=== PATIENT | female | born 1995 | race Caucasian/White ===

== ENCOUNTER 2021-05-19 23:21 | Emergency (ER) | payer OTHER, SELFPAY ==
--- OUTSIDE RECORDS SUMMARY | 2021-05-19 23:23 | XMS REPORT | Continuity of Care Document ---
:1995 Author Organization [facility] Address [address] [place] [address] Care Team Providers Name Role Phone Provider, [facility] Attending Clinician Unavailable Theodora Li Attending Clinician Theodora ASCENCIO Attending Clinician Unavailable Only, Test Attending Clinician Unavailable Melony BANKS Attending Clinician MELONY Attending Clinician Unavailable Doctor Unassigned, Name Attending Clinician Unavailable Payers Payer Name Policy Type Policy Number Effective Date Expiration Date S ource Problems Condition Condition Condition Status Onset Resolution Last Treating Co mments Source Name Details Category Date Date Treatment Clinician Date No known No known Disease Unive rs active active ity of problems problems [facility] Allergies, Adverse Reactions, Alerts Allergy Allergy Status Severity Reaction(s) Onset Inactive Treating Comm ents Source Name Type Date Date Clinician NO KNOWN Drug Active Univers ALLERGIE Class ity of S [facility] Social History Social Habit Start Date Stop Date Quantity Comments Source Exposure to Not sure University of SARS-CoV-2 [facility] (event) [facility] History of Cigarette Smoker Universi ty of tobacco use [facility] Tobacco use and 2020-10-07 2020-10-07 Never used Universit y of exposure 00:00:00 00:00:00 [facility] Sex Assigned At [birth year] Universit y of 00:00:00 00:00:00 [facility] Smoking Status Start Date Stop Date Source Unknown if ever smoked Universit y of [facility] Current every day smoker 2020-10-07 00:00:00 Uni versity of [facility] Medications Ordered Filled Start Stop Current Ordering Indication Dosage Frequency Signature Comments Components Source Medication Medication Date Date Medication? Clinician (SIG) Name Name bromphenira Yes [id number] 5mL Take 5 mL Univers mine-pseudo 5-12 by mouth 4 it y of ephedrine-D 00:00: (four) Eli Coronado (BROMFED 00 times Medical DM) 2-30-10 daily as Bran ch mg/5 mL needed for syrup Cold symptoms. Vital Signs Vital Name Observation Time Observation Value Comments Source Systolic blood 2020-10-07 17:21:00 128 mm[Hg] Univer sity of pressure [facility] Diastolic blood 2020-10-07 17:21:00 88 mm[Hg] Unive rsity of [facility] Heart rate 2020-10-07 17:21:00 82 /min [facility] Body temperature 2020-10-07 17:21:00 36.72 Rhiannon [facility] Respiratory rate 2020-10-07 17:21:00 17 /min [facility] Body height 2020-10-07 17:21:00 185.4 cm [facility] Body weight 2020-10-07 17:21:00 125.646 kg [facility] BMI 2020-10-07 17:21:00 36.55 kg/m2 [facility] Oxygen saturation in 2020-10-07 17:21:00 98 /min [facility] blood by [facility] Pulse oximetry [place] Procedures Procedure Date / Time Performed Performing Clinician Sourc e POCT GRP A STREP 2020-10-07 17:29:00 Dorita Ascencio [facility] ASSIGNMENT OF BENEFITS 2020-09-24 15:40:33 Doctor Unassigned, No [facility] Encounters Start End Encounter Admission Attending Care Care Encounter Source Date/Time Date/Time Type Type Clinicians Facility Department ID 2020-10-07 2020-10-07 Urgent Provider, [facility] [id number] Univers 12:12:23 13:44:50 Care Dorita Ascencio [facility] [id number] [facility] [id number] Mert as Anna [id number] Az dical nal [address] 2020-10-07 2020-10-07 Outpatient R [facility] [id number] Univers 12:20:00 12:20:00 [id number] [facility]-10-[facility] 2020-10-07 Outpatient R HEAVEN [facility] [id number] Univers 12:20:00 12:20:00 DORITA ity [facility] 2020-09-25 2020-09-25 Outpatient R [facility] [id number] -[id number] Univers 09:00:00 09:00:00 [id number] ity [facility] 2020-09-24 2020-09-24 Laboratory Only, Adc Test [facility] [id number] Univers 10:40:48 10:55:48 Only Guanako Tolbert [id number] ity of [place] [id number] [place] [facility] [id number] [address] 2020-09-24 2020-09-24 Outpatient R MELONY [facility] [id number] Univers 10:45:00 10:45:00 [facility] 2020-09-24 2020-09-24 Orders Doctor JULES [id number] Univers 00:00:00 00:00:00 Only Unassigned, ADELE [id number] ity of [place] [facility] [id number] Mert [id number] [address] Results Test Description Test Time Test Comments Results Result Comments Source POCT GRP A STREP (MOLECULAR) 2020-10-07 17:40:00 Test Item Value Reference Range Interpretation Comme nts POCT GP A STREP (test code = 68601-7) negative Negative - Negat sophia Lab Interpretation (test code = 28924-4) Normal [facility]
[2021-05-20 00:33] LABS: Urine Blood 3+ (Negative); Urine Glucose Negative (Negative); Urine Protein Negative (Negative); Urine pH 5.5 (5.0-7.0)
[2021-05-20 00:47] LABS: Absolute Lymphocytes (CBC) 3.3 K/uL (0.7-4.9); Basophils % 0.5 % (0-1.3); Hematocrit 35.5 % (36.0-45.0); Lymphocytes % 29.3 % (15.3-44.8); RBC Red Blood Cell Count 4.27 M/uL (3.86-4.86)
[2021-05-20 01:25] LABS: Potassium 3.5 mmol/L (3.5-5.1)
--- NOTE | 2021-05-20 02:42 | ER ---
Nurse's Notes [facility] Name: Lashaun Mcintosh Age: 25 yrs Sex: Female : 1995 Arrival Date: 05/19/2021 Time: 23: Bed 7 Private MD: Diagnosis: Threatened Presentation: 05/19 23:52 Chief complaint: Patient states: Vaginal bleeding began today. Pt reporting mild amount ld1 of bright red blood with tiny clots. States "a little bit of cramping." Last menstrual period 04/03/2021. Coronavirus screen: At this time, the client does not indicate any symptoms associated with coronavirus-19. Ebola Screen: No symptoms or risks identified at this time. Initial Sepsis Screen: Does the patient meet any 2 criteria? No. Patient's initial sepsis screen is negative. Does the patient have a suspected source of infection? No. Patient's initial sepsis screen is negative. Risk Assessment: Do you want to hurt yourself or someone else? Patient reports no desire to harm self or others. Onset of symptoms was May 19, 2021. 23:52 Method Of Arrival: Ambulatory ld1 23:52 Acuity: CATALINA 3 ld1 Triage Assessment: 23:54 General: Appears in no apparent distress. comfortable, Behavior is calm, cooperative, ld1 appropriate for age. Pain: Denies pain. Respiratory: Airway is patent Respiratory effort is even, unlabored. : Reports vaginal bleeding that is bright red, with clots, light flow. 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 - Social history:: Smoking status: Patient reports the use of cigarette tobacco products, smokes one-half pack cigarettes per day, Patient/guardian denies using alcohol. Screenin/23 00:34 Abuse screen: Denies threats or abuse. Nutritional screening: No deficits noted. as6 Tuberculosis screening: No symptoms or risk factors identified. Fall Risk None identified. Assessment: 00:33 General: Appears in no apparent distress. Behavior is calm, cooperative. Pain: as6 Complains of pain in abdomen. Pain: Quality of pain is described as crampy. Neuro: Level of Consciousness is awake, alert, obeys commands, Oriented to person, place, time, situation. Cardiovascular: Capillary refill < 3 seconds Patient's skin is warm and dry. Respiratory: Airway is patent Trachea midline Respiratory effort is even, unlabored, Respiratory pattern is regular, symmetrical. GI: Reports lower abdominal pain. : Reports vaginal bleeding that is bright red, moderate flow. Derm: Skin is intact, is healthy with good turgor. 01:07 Reassessment: Patient and/or family updated on plan of care and expected duration. Pain as6 level reassessed. Patient is alert, oriented x 3, equal unlabored respirations, skin warm/dry/pink. 02:17 Reassessment: Patient and/or family updated on plan of care and expected duration. Pain as6 level reassessed. Patient is alert, oriented x 3, equal unlabored respirations, skin warm/dry/pink. Vital Signs: 05/19 23:52 BP 127 / 77; Pulse 81; Resp 18; Temp 98.0(O); Pulse Ox 100% on R/A; Weight 123.38 kg; ld1 Height 6 ft. 0 in. (182.88 cm); Pain 0/10; 05/20 01:08 BP 126 / 76; Pulse 90; Resp 18 S; Pulse Ox 100% on R/A; as6 02:17 BP 122 / 63; Pulse 86; Resp 18 S; Pulse Ox 98% on R/A; as6 05/19 23:52 Body Mass Index 36.89 (123.38 kg, 182.88 cm) ld1 ED Course: 05/19 23:22 Patient arrived in ED. kc5 23:54 Triage completed. ld1 23:54 Arm band placed on right wrist. ld1 23:55 Anil Sharif PA is PHCP. jm 23:55 Medhat Murillo MD is Attending Physician. juan pablo 05/20 00:12 Issac Pierce, JOSE ENRIQUE is Primary Nurse. as6 00:23 Inserted saline lock: 20 gauge in right antecubital area, using aseptic technique. as6 Blood collected. 00:34 Placed in gown. Bed in low position. Call light in reach. Side rails up X2. Adult w/ as6 patient. Pulse ox on. NIBP on. 00:54 US 1st Trimest Single 1st Fetus In Process Unspecified. EDMS 03:03 No provider procedures requiring assistance completed. IV discontinued, intact, as6 bleeding controlled, No redness/swelling at site. Pressure dressing applied. Administered Medications: 03:01 Drug: Rho D Immune Globulin 300 mcg Route: IM; Site: right deltoid; as6 03:03 Follow up: Response: No adverse reaction as6 Outcome: 02:41 Discharge ordered by . sharon 03:03 Discharged to home ambulatory, with significant other. as6 03:03 Condition: stable 03:03 Discharge instructions given to patient, Instructed on discharge instructions, follow up and referral plans. Demonstrated understanding of instructions, follow-up care. 03:07 Patient left the ED. as6 Signatures: Dispatcher [employer] EDMS Anil Sharif PA PA jmm Pena, Laura, RN RN lp1 Alesia Bird RN RN ld1 Issac Pierce RN RN as6 Maryjane Rodrigez kc5 Corrections: (The following items were deleted from the chart) 02:32 12/22 23:54 LMP 04/03/2021 [email or web address] lp1
--- NOTE | 2021-05-20 02:42 | EDPHYS ---
Physician Documentation [facility] Name: Lashaun Mcintosh Age: 25 yrs Sex: Female : 1995 Arrival Date: 05/19/2021 Time: 23: Bed 7 Private MD: ED Physician Medhat Murillo HPI: 05/20 00:06 This 25 yrs old Female presents to ER via Ambulatory with complaints of Vaginal jmm Bleeding. 00:06 The patient presents with vaginal bleeding that is. Onset: The symptoms/episode jmm began/occurred today. Modifying factors: The symptoms are alleviated by nothing, the symptoms are aggravated by nothing. Associated signs and symptoms: Pertinent negatives: dysuria, fever. . 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 - Social history:: Smoking status: Patient reports the use of cigarette tobacco products, smokes one-half pack cigarettes per day, Patient/guardian denies using alcohol. ROS: 05/20 00:06 Constitutional: Negative for fever, chills, and weight loss, Cardiovascular: Negative jmm for chest pain, palpitations, and edema, Respiratory: Negative for shortness of breath, cough, wheezing, and pleuritic chest pain, Abdomen/GI: Negative for abdominal pain, nausea, vomiting, diarrhea, and constipation. : Positive for vaginal bleeding. All other systems are negative. Exam: 00:06 Constitutional: This is a well developed, well nourished patient who is awake, alert, jmm and in no acute distress. Head/Face: atraumatic. Eyes: EOMI, no conjunctival erythema appreciated ENT: Moist Mucus Membranes Neck: Trachea midline, Supple Chest/axilla: Normal chest wall appearance and motion. Cardiovascular: Regular rate and rhythm. No edema appreciated Respiratory: Normal respirations, no respiratory distress appreciated Abdomen/GI: Non distended, soft Back: Normal ROM Skin: General appearance color normal MS/ Extremity: Moves all extremities, no obvious deformities appreciated, no edema noted to the lower extremities Neuro: Awake and alert, normal gait Psych: Behavior is normal, Mood is normal, Patient is cooperative and pleasant Vital Signs: 05/19 23:52 BP 127 / 77; Pulse 81; Resp 18; Temp 98.0(O); Pulse Ox 100% on R/A; Weight 123.38 kg; ld1 Height 6 ft. 0 in. (182.88 cm); Pain 0/10; 05/20 01:08 BP 126 / 76; Pulse 90; Resp 18 S; Pulse Ox 100% on R/A; as6 02:17 BP 122 / 63; Pulse 86; Resp 18 S; Pulse Ox 98% on R/A; as6 05/19 23:52 Body Mass Index 36.89 (123.38 kg, 182.88 cm) ld1 MDM: 00:06 Patient medically screened. [facility] 02:39 Data reviewed: vital signs, nurses notes. Counseling: I had a detailed discussion with sharon the patient and/or guardian regarding: the historical points, exam findings, and any diagnostic results supporting the discharge/admit diagnosis, lab results, radiology results, the need for outpatient follow up, to return to the emergency department if symptoms worsen or persist or if there are any questions or concerns that arise at home. ED course: RHOgam administered. Advised to follow up with OBGYN for further evaluation. Patient otherwise given strict return precautions. Patient understood and agrees with the plan of care. . 05/20 00:07 Order name: Abo/rh Typing [facility] 05/20 00:07 Order name: Basic Metabolic Panel; Complete Time: 01:28 [facility] 05/20 00:07 Order name: CBC with Diff; Complete Time: 00:51 [facility] 05/20 00:07 Order name: Quantitative Hcg; Complete Time: 01:28 [facility] 05/20 00:33 Order name: Urine Dipstick-Ancillary; Complete Time: 00:42 [facility] 05/20 00:33 Order name: Urine --Ancillary (enter results); Complete Time: 00:51 [facility] 05/20 00:07 Order name: US 1st Trimest Single 1st Fetus [facility] 05/20 01:49 Order name: Rh Typing [facility] 05/20 01:49 Order name: Antibody Screen [facility] 05/20 01:49 Order name: Fetalscreen [facility] 05/20 01:49 Order name: Cord Rh type [facility] 05/20 01:49 Order name: Rhogam [facility] 05/20 02:37 Order name: ABO/RH no charge; Complete Time: 02:38 [facility] 05/20 00:07 Order name: IV Saline Lock; Complete Time: 00:23 [facility] 05/20 00:07 Order name: Labs collected and sent; Complete Time: 00:23 [facility] 05/20 00:07 Order name: NPO; Complete Time: 00:13 [facility] 05/20 00:07 Order name: Urine Dipstick-Ancillary (obtain specimen); Complete Time: 00:33 [facility] Administered Medications: 03:01 Drug: Rho D Immune Globulin 300 mcg Route: IM; Site: right deltoid; as6 03:03 Follow up: Response: No adverse reaction as6 Disposition: 04:42 Co-signature as Attending Physician, Medhat Murillo MD I agree with the assessment and rn plan of care. Attestation: The patient's history, exam findings, diagnostics, and a summary of any interventions or procedures was reviewed in detail with Anil VELIZ. Disposition Summary: 05/20/21 02:41 Discharge Ordered Location: Home [facility] Condition: Stable [facility] Diagnosis - Threatened [facility] Followup: [facility] - With: Private Physician - When: 2 - 3 days - Reason: Recheck today's complaints, Continuance of care, Repeat Beta-HCG (48 Hours), Re-evaluation by your physician Discharge Instructions: - Discharge Summary Sheet jm - Rh Incompatibility jmm - Threatened Miscarriage jm - Vaginal Bleeding During , First Trimester [facility] Forms: - Medication Reconciliation Form [facility] - Thank You Letter [facility] - Antibiotic Education [facility] - Prescription Opioid Use [facility] Signatures: Dispatcher [employer] Anil Tse PA PA jmm Nieto, Roman, MD MD rn Dibbern, Lauren, RN RN [email or web address] Issac Pierce RN RN as6
[2021-05-20 03:23] VITALS: TEMP 98
[2021-05-20 03:26] VITALS: BP 122/63; O2SAT 98
--- NOTE | 2021-05-20 11:28 | RAD REPORT ---
EXAM DESCRIPTION: US - 1St Trimest Single 1St Fetus - 05/20/2021 12:54 am CLINICAL HISTORY: VAGINAL BLEEDING COMPARISON: No comparisons FINDINGS: Gestational sac identified with mean sac diameter of 2.2 cm. No pole identified. The right ovary measures 3.8 x 1.8 x 2.3 cm with volume of 8.3 mL. The left ovary measures 3.7 x 3 x 3.1 cm with volume of 17.7 mL. Vascular flow is present within both ovaries. IMPRESSION: Gestational sac identified consistent with 7 weeks 0 day. No pole identified. This may be from early dates. Suggest short-term follow-up ultrasound.
== END 2021-05-20 03:07 | disposition home or self-care (01) ==
LOC: ER 23:21
DX: O20.0 Threatened abortion (principal); Z3A.01 Less than 8 weeks gestation of pregnancy
CPT/HCPCS: 36415; 76801; 80048; 81003; 81025; 84702; 85025; 86850; 86900; 86901; 96372; 99284; J2790

== ENCOUNTER 2021-05-21 21:47 | Emergency (ER) | payer OTHER, SELFPAY ==
--- OUTSIDE RECORDS SUMMARY | 2021-05-21 21:49 | XMS REPORT | Continuity of Care Document ---
:1995 Author Organization [facility] t Address [address] [place] [address] Care Team Providers Name Role Phone Provider, [...] rs active active ity of problems problems [facility] Allergies, Adverse Reactions, Alerts Allergy Allergy Status Severity Reaction(s) Onset Inactive Treating Comm ents Source Name Type Date Date Clinician NO KNOWN Drug Active Univers ALLERGIE Class ity of S [facility] Social History Social Habit Start Date Stop Date Quantity Comments Source Exposure to Not sure [facility] SARS-CoV-2 [facility] (event) [place] History of Cigarette Smoker Universi ty of tobacco use [facility] Tobacco use and 2020-10-07 2020-10-07 Never used Universit y of exposure 00:00:00 00:00:00 [facility] Sex Assigned At [birth year] Universit y of 00:00:00 00:00:00 [facility] Smoking Status Start Date Stop Date Source Unknown if ever smoked Universit y [facility] Current every day smoker 2020-10-07 00:00:00 Uni versity [facility] Medications Ordered Filled Start Stop Current Ordering Indication Dosage Frequency Signature Comments Components Source Medication Medication Date Date Medication? Clinician (SIG) Name Name belinda Yes [id number] 5mL Take 5 mL Univers mine-pseudo 5-12 by mouth 4 it y of ephedrine-D 00:00: (four) Eli Coronado (BROMFED 00 times Medical DM) 2-30-10 daily as Bran ch mg/5 mL needed for syrup Cold symptoms. Vital Signs Vital Name Observation Time Observation Value Comments Source Systolic blood 2020-10-07 17:21:00 128 mm[Hg] Univer sity of pressure [facility] Diastolic blood 2020-10-07 17:21:00 88 mm[Hg] Unive rsity [facility] Heart rate 2020-10-07 17:21:00 82 /min [facility] Body temperature 2020-10-07 17:21:00 36.72 Rhiannon [facility] Respiratory rate 2020-10-07 17:21:00 17 /min [facility] Body height 2020-10-07 17:21:00 185.4 cm [facility] Body weight 2020-10-07 17:21:00 125.646 kg [facility] BMI 2020-10-07 17:21:00 36.55 kg/m2 [facility] Oxygen saturation in 2020-10-07 17:21:00 98 /min [facility] Arterial blood by [facility] Pulse oximetry [place] Procedures Procedure Date / Time Performed Performing Clinician Sourc e POCT GRP A STREP 2020-10-07 17:29:00 Dorita Ascencio [facility] ASSIGNMENT OF BENEFITS 2020-09-24 15:40:33 Doctor Unassigned, No [facility] Encounters Start End Encounter Admission Attending Care Care Encounter Source Date/Time Date/Time Type Type Clinicians Facility Department ID 2020-10-07 2020-10-07 Urgent Provider, [facility] [id number] Univers 12:12:23 13:44:50 Care Dorita Ascencio [facility] [id number] ity [facility] [id number] Mert as Profshanitaio [id number] [facility] [address] 2020-10-07 2020-10-07 Outpatient R [facility] [id number] Univers 12:20:00 12:20:00 [id number] [facility] 2020-10-07 2020-10-07 Outpatient R HEAVEN [facility] [id number] Univers 12:20:00 12:20:[address] [facility] 2020-09-25 2020-09-25 Outpatient R [facility] [id number] Univers 09:00:00 09:00:[id number] [facility] 2020-09-24 2020-09-24 Laboratory Only, Adc Test [facility] [id number]. [id number] Univers 10:40:48 10:55:48 Only Guanako Tolbert [id number] [facility] [id number] [facility] [id number] [address] 2020-09-24 2020-09-24 Outpatient R MELONY [facility] [id number] Univers 10:45:00 10:45:[address] [facility] 2020-09-24 2020-09-24 Orders Doctor DHARA [id number] Univers 00:00:00 00:00:00 Only Unassigned, ADELE [id number] ity of [place] [facility] [id number] [facility] [phone] [address] Results Test Description Test Time Test Comments Results Result Comments Source POCT GRP A STREP (MOLECULAR) 2020-10-07 17:40:00 Test Item Value Reference Range Interpretation Comme nts POCT GP A STREP (test code = 16732-8) negative Negative - Negat sophia Lab Interpretation (test code = 54051-6) [facility]
[2021-05-21] MEDS ORDERED: ONDANSETRON 4 MG/2 ML VIAL ONE (23:32)
[2021-05-21] MEDS ORDERED: MORPHINE 4 MG/ML SYR ONE (23:32)
[2021-05-21 23:53] LABS: Basophils % 0.5 % (0-1.3); Hematocrit 35.4 % (36.0-45.0); Lymphocytes % 14.8 % (15.3-44.8); MPV 8.4 fL (7.6-11.3); RBC Red Blood Cell Count 4.21 M/uL (3.86-4.86)
[2021-05-22 00:27] LABS: Potassium 3.7 mmol/L (3.5-5.1)
--- NOTE | 2021-05-22 01:10 | EDPHYS ---
Physician Documentation [facility] Name: Lashaun Mcintosh Age: 25 yrs Sex: Female : 1995 Arrival Date: 05/21/2021 Time: 21:48 Bed 15 Private MD: DAJA Physician Dwain Chung HPI: 05/22 00:14 This 25 yrs old Female presents to ER via Ambulatory with complaints of audi Vaginal Bleeding, + Preg <12wks, Dizziness. 00:14 The patient presents to the emergency department with vaginal bleeding, that is audi moderate. The estimated gestational age is 7 weeks. course: care: at a clinic. Previous pregnancies: the patient has never been . Associated signs and symptoms: The patient has no apparent associated signs or symptoms. The patient has not experienced similar symptoms in the past. 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 - Social history:: Smoking status: Patient denies any tobacco usage or history of. ROS: 05/22 00:17 Constitutional: Negative for fever, chills, and weight loss, Eyes: Negative for injury, audi pain, redness, and discharge, ENT: Negative for injury, pain, and discharge, Neck: Negative for injury, pain, and swelling, Cardiovascular: Negative for chest pain, palpitations, and edema, Respiratory: Negative for shortness of breath, cough, wheezing, and pleuritic chest pain, Abdomen/GI: Negative for abdominal pain, nausea, vomiting, diarrhea, and constipation, Back: Negative for injury and pain, MS/Extremity: Negative for injury and deformity, Skin: Negative for injury, rash, and discoloration, Neuro: Negative for headache, weakness, numbness, tingling, and seizure, Psych: Negative for depression, anxiety, suicide ideation, homicidal ideation, and hallucinations, Allergy/Immunology: Negative for hives, rash, and allergies, Endocrine: Negative for neck swelling, polydipsia, polyuria, polyphagia, and marked weight changes, Hematologic/Lymphatic: Negative for swollen nodes, abnormal bleeding, and unusual bruising. : Positive for pelvic pain, vaginal bleeding. Exam: 00:17 Constitutional: This is a well developed, well nourished patient who is awake, alert, audi and in no acute distress. Head/Face: Normocephalic, atraumatic. Eyes: Pupils equal round and reactive to light, extra-ocular motions intact. Lids and lashes normal. Conjunctiva and sclera are non-icteric and not injected. Cornea within normal limits. Periorbital areas with no swelling, redness, or edema. ENT: Nares patent. No nasal discharge, no septal abnormalities noted. Tympanic membranes are normal and external auditory canals are clear. Oropharynx with no redness, swelling, or masses, exudates, or evidence of obstruction, uvula midline. Mucous membranes moist. Neck: Trachea midline, no thyromegaly or masses palpated, and no cervical lymphadenopathy. Supple, full range of motion without nuchal rigidity, or vertebral point tenderness. No Meningismus. Chest/axilla: Normal chest wall appearance and motion. Nontender with no deformity. No lesions are appreciated. Cardiovascular: Regular rate and rhythm with a normal S1 and S2. No gallops, murmurs, or rubs. Normal PMI, no JVD. No pulse deficits. Respiratory: Lungs have equal breath sounds bilaterally, clear to auscultation and percussion. No rales, rhonchi or wheezes noted. No increased work of breathing, no retractions or nasal flaring. Abdomen/GI: Soft, non-tender, with normal bowel sounds. No distension or tympany. No guarding or rebound. No evidence of tenderness throughout. Back: No spinal tenderness. No costovertebral tenderness. Full range of motion. Skin: Warm, dry with normal turgor. Normal color with no rashes, no lesions, and no evidence of cellulitis. Neuro: Awake and alert, GCS 15, oriented to person, place, time, and situation. Cranial nerves II-XII grossly intact. Motor strength 5/5 in all extremities. Sensory grossly intact. Cerebellar exam normal. Normal gait. Psych: Awake, alert, with orientation to person, place and time. Behavior, mood, and affect are within normal limits. 00:17 : CVA tenderness, is absent, Pelvic Exam: Speculum exam: moderate bleeding, discharge, is not appreciated, the nurse was present for the exam. Vital Signs: 05/21 22:28 BP 117 / 85; Pulse 89; Resp 18; Temp 97.3; Pulse Ox 98% ; Pain 10/10; tw5 22:47 BP 127 / 89; Pulse 117; Resp 17; Temp 98.3; Pulse Ox 98% on R/A; dh4 05/22 01:00 BP 128 / 78; Pulse 102; Resp 18; Temp 98.3; Pulse Ox 98% on R/A; mr2 MDM: 05/21 22:49 Patient medically screened. [facility] 05/22 00:18 Differential diagnosis: inevitable Ab. Data reviewed: vital signs, nurses notes, lab audi test result(s), radiologic studies, ultrasound. Data interpreted: riveter hand: rate is 117 beats/min, rhythm is regular, Pulse oximetry: on room air is 98 %. Test interpretation: by ED physician or midlevel provider:. Counseling: I had a detailed discussion with the patient and/or guardian regarding: the historical points, exam findings, and any diagnostic results supporting the discharge/admit diagnosis, lab results, radiology results. 05/21 22:52 Order name: Abo/rh Typing [facility] 05/21 22:52 Order name: Basic Metabolic Panel [facility] 05/21 22:52 Order name: CBC with Diff [facility] 05/21 22:52 Order name: Quantitative Hcg [facility] 05/21 22:53 Order name: ABO/RH typing; Complete Time: 00:34 EDWA 05/21 22:53 Order name: Basic Metabolic Panel; Complete Time: 00:34 EDWA 05/21 22:52 Order name: US Transvaginal Ob [facility] 05/21 22:53 Order name: HCG, Quantitative; Complete Time: 00:34 EDWA 05/21 22:53 Order name: CBC with Automated Diff; Complete Time: 23:59 EDWA 05/21 22:52 Order name: IV Saline Lock; Complete Time: 22:55 [facility] 05/21 22:52 Order name: Labs collected and sent; Complete Time: 22:55 [facility] 05/21 22:52 Order name: NPO; Complete Time: 22:55 [facility] 05/21 22:52 Order name: Urine Dipstick-Ancillary (obtain specimen); Complete Time: 22:55 [facility] 05/21 22:52 Order name: Urine Test (obtain specimen) [facility] Administered Medications: 05/21 22:55 Drug: NS 0.9% 1000 ml Route: IV; Rate: 1 bolus; Site: left antecubital; mr2 23:39 Drug: Zofran (Ondansetron) 4 mg Route: IVP; Site: right antecubital; mr2 23:47 Drug: morphine 2 mg Route: IVP; Site: right antecubital; mr2 05/22 00:17 Drug: morphine 2 mg Route: IVP; Site: right antecubital; mr2 01:23 Drug: METHERgine 0.2 mg Route: IM; Site: right deltoid; mr2 01:55 Drug: [place] (HYDROcodone-acetaminophen) 10 mg-325 mg 1 tabs Route: PO; mr2 Point of Care Testing: Urine : 05/21 12:00 hCG Reading: Positive; mr2 Disposition Summary: 05/22/21 01:10 Discharge Ordered Location: Home audi Problem: new audi Symptoms: have improved audi Condition: Stable audi Diagnosis - Incomplete spontaneous without complication - bleeding audi Followup: audi - With: Private Physician - When: 2 - 3 days - Reason: Recheck today's complaints, Continuance of care, Re-evaluation by your physician Discharge Instructions: - Discharge Summary Sheet audi - Incomplete Miscarriage audi - Miscarriage audi - Miscarriage, [id number] audi - Form - Return To Work la1 Forms: - Medication Reconciliation Form [facility] - Thank You Letter [facility] - Antibiotic Education audi - Prescription Opioid Use [facility] - Work release form la1 Prescriptions: - Methergine 0.2 mg Oral tablet - take 1 tablet by ORAL route every 6 hours for 2 days; 5 tablet; Refills: 0, [facility] Product Selection Permitted - Zofran 4 mg Oral Tablet - take 1 tablet by ORAL route every 12 hours As needed; 20 tablet; Refills: 0, [facility] Product Selection Permitted - Tylenol-Codeine #3 300 mg-30 mg Oral - take 2 tablet by ORAL route every 4-6 hours; 15 tablet; Refills: 0, Product [facility] Selection Permitted Signatures: Dispatcher [employer] Dwain Crump MD MD cha Reynard, Mike, RN RN mr2
--- NOTE | 2021-05-22 01:10 | ER ---
Nurse's Notes [facility] Name: Lashaun Mcintosh Age: 25 yrs Sex: Female : 1995 Arrival Date: 05/21/2021 Time: 21:48 Bed 15 Private MD: Diagnosis: Incomplete spontaneous without complication-bleeding Presentation: 05/21 22:28 Chief complaint: Patient states: Vaginal bleeding began 3 days ago. Was seen here tw5 ultrasound performed confirming intrauterine . Also received Rhogam Shot on 05/19/21. Patient states beginning at 6pm tonight bleeding has increased "soaking 6 pads/hour" and experiencing pelvic cramping. Onset of symptoms was May 19, 2051. Care prior to arrival: Medication(s) given: Tylenol. :28 Method Of Arrival: Ambulatory tw5 22:28 Acuity: [place] 4 tw5 22:54 Coronavirus screen: Vaccine status: Patient reports receiving the 2nd dose of the covid mr2 vaccine. Ebola Screen: No symptoms or risks identified at this time. Initial Sepsis Screen: Does the patient meet any 2 criteria? No. Patient's initial sepsis screen is negative. Does the patient have a suspected source of infection? No. Patient's initial sepsis screen is negative. Risk Assessment: Do you want to hurt yourself or someone else? Patient reports no desire to harm self or others. Triage Assessment: 22:51 General: Appears in no apparent distress. Behavior is calm, cooperative. Pain: Denies mr2 pain. : No deficits noted. 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 - Social history:: Smoking status: Patient denies any tobacco usage or history of. Screenin:53 Abuse screen: Denies threats or abuse. Denies injuries from another. Nutritional mr2 screening: No deficits noted. Tuberculosis screening: No symptoms or risk factors identified. Fall Risk None identified. Assessment: 22:52 Obstetrical Assessment: General assessment: awake and alert, skin warm and dry, mr2 respirations even and unlabored, Rupture of membranes not noted. Contractions Patient reports. Vital Signs: 22:28 BP 117 / 85; Pulse 89; Resp 18; Temp 97.3; Pulse Ox 98% ; Pain 10/10; tw5 22:47 BP 127 / 89; Pulse 117; Resp 17; Temp 98.3; Pulse Ox 98% on R/A; dh4 05/22 01:00 BP 128 / 78; Pulse 102; Resp 18; Temp 98.3; Pulse Ox 98% on R/A; mr2 Vitals: 01:42 Heart Tones negative. mr2 ED Course: 05/21 21:48 Patient arrived in ED. bp1 22:32 Triage completed. tw5 22:49 Dwain Chung MD is Attending Physician. audi 22:51 Dilan Russell, JOSE ENRIQUE is Primary Nurse. mr2 22:52 Arm band placed on right wrist. mr2 22:53 Patient has correct armband on for positive identification. mr2 22:53 No provider procedures requiring assistance completed. Inserted saline lock: 18 gauge mr2 in left antecubital area, using aseptic technique. 22:55 CBC with Automated Diff Sent. mr2 22:55 Basic Metabolic Panel Sent. mr2 22:55 HCG, Quantitative Sent. mr2 22:55 ABO/RH typing Sent. mr2 22:55 Abo/rh Typing Sent. mr2 22:55 Basic Metabolic Panel Sent. mr2 22:55 CBC with Diff Sent. mr2 22:55 Quantitative Hcg Sent. mr2 05/22 00:09 US Transvaginal Ob In Process Unspecified. EDMS 01:42 IV discontinued. mr2 Administered Medications: 05/21 22:55 Drug: NS 0.9% 1000 ml Route: IV; Rate: 1 bolus; Site: left antecubital; mr2 23:39 Drug: Zofran (Ondansetron) 4 mg Route: IVP; Site: right antecubital; mr2 23:47 Drug: morphine 2 mg Route: IVP; Site: right antecubital; mr2 05/22 00:17 Drug: morphine 2 mg Route: IVP; Site: right antecubital; mr2 01:23 Drug: METHERgine 0.2 mg Route: IM; Site: right deltoid; mr2 01:55 Drug: [place] (HYDROcodone-acetaminophen) 10 mg-325 mg 1 tabs Route: PO; mr2 Point of Care Testing: Urine : 05/21 12:00 hCG Reading: Positive; mr2 Outcome: 05/22 01:10 Discharge ordered by . audi 01:41 Discharged to home ambulatory. mr2 01:41 Condition: stable 01:41 Discharge instructions given to patient, Instructed on discharge instructions, follow up and referral plans. medication usage, Prescriptions given X 3. 02:05 Patient left the ED. mr2 Signatures: Dispatcher [employer] EDMS Dwain Chung MD MD cha Huhn, Donald 4 Shelly Eagle Mike, RN RN mr2 Rajwinder Luu 5
[2021-05-22] MEDS ORDERED: METHYLERGONOVINE 0.2MG/ML AMP IM ONE (01:23)
[2021-05-22] MEDS ORDERED: HYDROCODONE/APAP 10/325 TAB ONE (01:51)
[2021-05-22 02:10] VITALS: O2SAT 98
[2021-05-22 02:12] VITALS: TEMP 98.3
[2021-05-22 02:14] VITALS: BP 128/78
--- NOTE | 2021-05-22 07:17 | RAD REPORT ---
EXAM DESCRIPTION: US - Transvaginal OB - 05/22/2021 12:06 am CLINICAL HISTORY: ABD CRAMPING, COMPARISON: 1St Trimest Single 1St Fetus dated 05/20/2021 FINDINGS: Elongated, ovoid cystic structure in the lower uterine segment with thin internal septatio ns. The gestational sac migrated into the lower segment. No pole identified. No yolk sac seen. Neither ovary was visualized. No free fluid. IMPRESSION: Irregular-shaped gestational sac in the lower uterine segment concerning for, but not di agnostic of, a failed first trimester . The gestational sac migrated into the lower uterine segment since yesterday's ultrasound.
== END 2021-05-22 02:05 | disposition home or self-care (01) ==
LOC: ER 21:47
DX: O03.4 Incomplete spontaneous abortion without complication (principal)
CPT/HCPCS: 85025; 80048; 36415; 86900; 86901; 84702; 76817; 96375; 96372; 96374; 99284; J2210; J2405